=== PATIENT | male | born 1995 | race Caucasian/White ===

== ENCOUNTER 2024-07-22 23:46 | Emergency (ER) | payer BC, OTHER ==
[~2024-07-22] VITALS: Ht 172.7 cm; Wt 109.1 kg
[2024-07-22 23:48] VITALS: BP 132/80; PULSE 110; RESP 18; O2SAT 96
[2024-07-23] MEDS: ACETAMINOPHEN 325 MG TAB PO ONE (01:04)
[2024-07-23] MEDS: LIDOCAINE 1% HCL (LOCAL ANESTH.) INJ 20ML MDV ID ONE (02:30)
[2024-07-23] MEDS ORDERED: AUG875T PO (03:41)
[2024-07-23] MEDS: TETANUS-DIPTH-ACEL PERTUSSIS 0.5ML SYR Tdap IM ONE (03:44)
== END 2024-07-23 03:47 | disposition home or self-care (01) ==
LOC: ER 23:46
DX: S81.812A Laceration without foreign body, left lower leg, initial encounter (principal); Z79.899 Other long term (current) drug therapy; W45.8XXA Other foreign body or object entering through skin, initial encounter; Y93.01 Activity, walking, marching and hiking; Y92.89 Other specified places as the place of occurrence of the external cause; Y99.8 Other external cause status
CPT/HCPCS: 12001; 73590; 90471; 90715; 99283; J2003